=== PATIENT | female | born 1995 | race African-American/Black ===

== ENCOUNTER 2018-03-11 00:36 | Emergency (ER) | payer OTHER ==
[2018-03-11 02:00] LABS: HEMOGLOBIN 11.9 g/dL (12.0-15.5); MEAN CORPUSCULAR HEMOGLOBIN 29.8 pg (27.0-33.4); MEAN CORPUSCULAR HGB CONC 34.9 g/dL (32.0-36.0); MEAN CORPUSCULAR VOLUME 86 fl (80-97); PLATELET COUNT 301 10^3/uL (150-450); RED BLOOD COUNT 3.97 10^6/uL (3.72-5.28); RED CELL DISTRIBUTION WIDTH 13.6 % (11.5-14.0); WHITE BLOOD COUNT 7.2 10^3/uL (4.0-10.5)
[2018-03-11 02:14] LABS: ANION GAP 8 (5-19); BLOOD UREA NITROGEN 12 mg/dL (7-20); CALCIUM 9.6 mg/dL (8.4-10.2); CARBON DIOXIDE 25 mmol/L (22-30); CHLORIDE 107 mmol/L (98-107); GLUCOSE 105 mg/dL (75-110); POTASSIUM 4.1 mmol/L (3.6-5.0); SODIUM 140.4 mmol/L (137-145)
--- NOTE | 2018-03-11 02:54 | RADIOLOGY REPORT (SQ) ---
EXAM DESCRIPTION: US TRANSVAGINAL COMPLETED DATE/TME: 03/11/2018 01:38 CLINICAL HISTORY: 22 years Female, preg bleeding positive test. Comparison: None. Technique: Transvaginal. LIMITATIONS: None. FINDINGS: No evidence of intrauterine gestation. 6.5-cm uterus, 0.3-cm endometrial stripe thickness, 2.5-cm cervical length, 2.4-cm right ovary, and 3.0-cm left ovary appear otherwise unremarkable in size, shape, echotexture, and vascularity. Small free pelvic fluid. IMPRESSION: No evidence of intrauterine gestation. Small free pelvic fluid. Endometrial hypoplasia. Differential diagnosis includes occult ectopic gestation. Consider serial laboratory/sonographic evaluation in 48 to 72 hours.
--- NOTE | 2018-03-11 03:36 | ER Document Report ---
ED General - General Chief Complaint: Vag Bleeding, +preg <12wks Stated Complaint: VAGINAL BLEEDING Time Seen by Provider: 03/11/18 01:28 Notes: Patient is a 22-year-old female at roughly 6 weeks by LMP who presents of 1 week of intermittent lower abdominal cramping and 2-3 days of vaginal bleeding. Patient states that she had unprotected sexual intercourse mid January, has not had any sexual encounter since that time. States that she took Plan B the day after and then again 2 weeks later. She notes that she has had a positive test and had not started to get her. When she was supposed to. Became concerned tonight when she began bleeding more heavily and was continuing to have a mild, aching, cramping lower abdominal discomfort. Pain came and went. Nothing seemed to improve or worsen her symptoms. She has not had an ultrasound previously during this . Denies any previous history of similar symptoms. TRAVEL OUTSIDE OF THE [place] IN LAST 30 DAYS: No Past Medical History - General Information source: Patient - Social History Smoking Status: Never Smoker Chew tobacco use (# tins/day): No Frequency of alcohol use: None Drug Abuse: None Lives with: Family Family History: Reviewed & Not Pertinent Patient has suicidal ideation: No Patient has homicidal ideation: No Neurological Medical History: Reports: Hx Migraine Renal/ Medical History: Denies: Hx Peritoneal Dialysis GI Medical History: Reports: Hx Gastroesophageal Reflux Disease Psychiatric Medical History: Reports: Hx Depression - and anxiety Review of Systems - Review of Systems Notes: Constitutional: Negative for fever. HENT: Negative for sore throat. Eyes: Negative for visual changes. Cardiovascular: Negative for chest pain. Respiratory: Negative for shortness of breath. Gastrointestinal: Positive for lower abdominal pain Genitourinary: Positive for vaginal bleeding Musculoskeletal: Negative for back pain. Skin: Negative for rash. Neurological: Negative for headaches, weakness or numbness. 10 point ROS negative except as marked above and in HPI. Physical Exam - Vital signs Vitals: Temp Pulse Resp BP Pulse Ox 97.7 F 63 16 112/60 100 03/11/18 01:11 03/11/18 01:11 03/11/18 01:11 03/11/18 01:11 03/11/18 01:11 Interpretation: Normal Notes: PHYSICAL EXAMINATION: GENERAL: Well-appearing, well-nourished and in no acute distress. HEAD: Atraumatic, normocephalic. EYES: Pupils equal round and reactive to light, extraocular movements intact, sclera anicteric, conjunctiva are normal. ENT: nares patent, oropharynx clear without exudates. Moist mucous membranes. NECK: Normal range of motion, supple without lymphadenopathy LUNGS: Breath sounds clear to auscultation bilaterally and equal. No wheezes ra les or rhonchi. HEART: Regular rate and rhythm without murmurs ABDOMEN: Soft, nontender, normoactive bowel sounds. No guarding, no rebound. No masses appreciated. EXTREMITIES: Normal range of motion, no pitting or edema. No cyanosis. NEUROLOGICAL: No focal neurological deficits. Moves all extremities spontaneously and on command. PSYCH: Normal mood, normal affect. SKIN: Warm, Dry, normal turgor, no rashes or lesions noted. Course - Re-evaluation Re-evalutation: 03/11/18 03:34 Patient presents with a mild amount of vaginal bleeding in the setting of an early first trimester . Transvaginal ultrasound is unable to visualize an intrauterine at this time. Quantitative beta hCG below the zone of demargination. No active bleeding at time of presentation. She is Rh positive. Patient's abdominal exam is otherwise benign without any focal tenderness. I do not suspect an acute appendicitis, pyelonephritis, cystitis, or bowel obstruction. Patient is visiting from out of town and I have advised follow-up when she returns on Monday to [place] for quantitative beta hCG to assess whether or not this is a probable chemical versus less likely a normal or a possible ectopic . At this time will discharge with return precautions and follow-up recommendations. Verbal discharge instructions given a the bedside and opportunity for questions given. Medication warnings r eviewed. Patient is in agreement with this plan and has verbalized understanding of return precautions and the need for primary care follow-up in the next 24-72 hours. - Vital Signs Vital signs: Temp Pulse Resp BP Pulse Ox 98.1 F 82 16 113/72 97 03/11/18 03:44 03/11/18 03:44 03/11/18 03:44 03/11/18 03:44 03/11/18 03:44 - Laboratory Result Diagrams: 03/11/18 01:45 03/11/18 01:45 Laboratory results interpreted by me: 03/11/18 03/11/18 01:45 01:45 Hgb 11.9 L Hct 34.0 L Beta HCG, Quant 72.61 H - Diagnostic Test Radiology reviewed: Reports reviewed Discharge - Discharge Clinical Impression: of unknown anatomic location Hemorrhage Qualifiers: Trimester: first trimester Qualified Code(s): O20.9 - Hemorrhage in early , unspecified Condition: Good Disposition: HOME, SELF-CARE Additional Instructions: You need to follow-up with your OB when you return to [place] on Monday for a recheck of your hormone level. The ultrasound is unable to see anything at this time because you are too early in your . As we discussed, there is a very high chance that this is a "chemical ". However, we cannot definitively exclude an ectopic at this time. Please return if you develop severe abdominal pain, bleeding that goes through more than 2 pads for more than 2 hours, pass out, or have any other symptoms that are concerning to you. Please follow-up closely with your OBGYN regarding todays visit.
[2018-03-11 03:46] VITALS: BP 113/72
== END 2018-03-11 03:50 | disposition home or self-care (01) ==
LOC: ER 00:36
DX: O20.9 Hemorrhage in early pregnancy, unspecified (principal); Z3A.01 Less than 8 weeks gestation of pregnancy
CPT/HCPCS: 36415; 76817; 80048; 84702; 85027; 86900; 86901; 99284

== ENCOUNTER 2020-01-05 02:33 | Inpatient (IN) | payer OTHER, MEDICAID ==
[2020-01-05] MEDS ORDERED: MISOPROSTOL 0.2 MG TABLET ONE (03:03)
[2020-01-05] MEDS ORDERED: OXYTOCIN/0.9 % SODIUM CHLORIDE 30 UNIT/500 ML RTUINJ ONE (03:03)
[2020-01-05] MEDS ORDERED: LIDOCAINE 1% INJ-PF (10 MG/ML) 30 ML SDV ONE (03:03)
[2020-01-05] MEDS ORDERED: OXYTOCIN 10 UNIT/ML VIAL ONE (03:03)
[2020-01-05] MEDS ORDERED: RINGERS SOLUTION,LACTATED 1,000 ML IV PRN (03:13)
--- NOTE | 2020-01-05 03:59 | Admission Physical ---
Datetime Report Generated by CPN: 01/05/2020 03:59 CURRENT ADMISSION Chief Complaint: Uterine Contractions Indication for Induction: Not Applicable Admit Impression : Active Labor Admit Plan: Admit to Unit ALLERGIES Medication Allergies: Yes Latex: No Latex Allergies OBSTETRICAL HISTORY EDC: 01/02/2020 00:00 : 2 Para: 0 Term: 0 : 0 SAB: 0 IAB: 0 Ectopic: 0 Livin Cesareans: 0 VBACs: 0 Multiple Births: 0 Gestational Diabetes: No Rh Sensitization: No Incompetent Cervix: No ESSENCE: No Infertility: No ART Treatment: No Uterine Anomaly: No IUGR: No Hx Previous C/S: No Macrosomia: No Hx Loss/Stillborn: No PIH: No Hx : No Placenta Previa/Abruption: No Depression/PP Depression: No PTL/PROM: No Post Hemorrhage: No Current Procedures: Ultrasound Obstetrical History Comments: G1: 03/2018 SAB _7 weeks G2: current SEE RECORDS Alcohol: No Marijuana : No Cocaine: No Other Illicit Drugs: No Cigarettes: Never Smoker. 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 Heart Disease: No Hosp/Surgery: No Autoimmune Disorder: No Anesthetic Complications: No Kidney Disease: Yes Abnormal Pap Smear: No Neuro/Epilepsy: No Psychiatric Disorders: No Other Medical Diseases: No Hepatitis/Liver Disease: No Significant Family History: No Varicosities/Phlebitis: No Trauma/Violence : No Thyroid Dysfunction: No Medical History Comments: hx of bladder infections, migraines, anemia, HSV INFECTIOUS HISTORY Gonorrhea: No Genital Herpes: Yes Chlamydia: Yes Tuberculosis: No Syphilis: No Hepatitis: No HIV/AIDS Exposure: No Rash or Viral Illness: No HPV: No Infectious History Comments: chlamydia in 2013 PHYSICAL EXAM General: Normal HEENT: Normal Neurologic: Normal Thyroid: Normal Heart: Normal Lungs: Normal Breast: Deferred Back: Normal Abdomen: Normal Genitourinary Exam: Normal Extremities: Normal DTRs: Normal Pelvic Type: Adequate Vital Signs: Reviewed VAGINAL EXAM Dilatation: 8 Effacement: 100 Station: 0 MEMBRANES Pooling: Positive FETUS A EGA: 40.3 Monitoring: External US FHR- Baseline: 120 Variability: Moderate 6-25bpm Decelerations: None Presentation: Vertex Admit Comment: anticipate delivery PLANS FOR LABOR AND DELIVERY Labor and Delivery: Plan Pain Management: Natural; Epidural Feeding Preference: Breast Benefit of Breast Feed Discussed: Yes Circumcision: N/A INFORMED CONSENT Signature: with User ID: [email or web address]
[2020-01-05] MEDS ORDERED: BENZOCAINE/MENTHOL AEROSOL SPRAY 56 ML ONE (04:03)
[2020-01-05] MEDS ORDERED: IBUPROFEN 800 MG TABLET ONE (04:03)
[2020-01-05] MEDS ORDERED: OXYTOCIN/0.9 % SODIUM CHLORIDE 30 UNIT/500 ML RTUINJ IV PRN (04:06)
[2020-01-05] MEDS ORDERED: PROMETHAZINE HCL 25 MG TABLET PO PRN (04:06)
[2020-01-05] MEDS ORDERED: ACETAMINOPHEN 650 MG SUPP.RECT PR PRN (04:06)
[2020-01-05] MEDS ORDERED: ZOLPIDEM TARTRATE 5 MG TABLET PO PRN (04:06)
[2020-01-05] MEDS ORDERED: PROMETHAZINE HCL INJ 25 MG/1 ML VIAL IV PRN (04:06)
[2020-01-05] MEDS ORDERED: MEASLES,MUMPS&RUBELLA VACC/PF 0.5 ML VIAL SUBCUT PRN (04:06)
[2020-01-05] MEDS ORDERED: NA PHOS,M-B/NA PHOS,DI-BA (ADULT) 133 ML ENEMA PR PRN (04:06)
[2020-01-05] MEDS ORDERED: DIBUCAINE 1% OINTMENT 28 GM TP PRN (04:06)
[2020-01-05] MEDS ORDERED: DIPHENHYDRAMINE HCL 25 MG CAPSULE PO PRN (04:06)
[2020-01-05] MEDS ORDERED: ACETAMINOPHEN WITH CODEINE #3 TABLET PO PRN ×2 (04:06)
[2020-01-05] MEDS ORDERED: DIPH/PERTUSS(ACELL)/TETANUS VAC/PF 0.5 ML SYR (>=10YO) IM PRN (04:06)
[2020-01-05] MEDS ORDERED: BENZOCAINE/MENTHOL AEROSOL SPRAY 56 ML TOP PRN (04:06)
[2020-01-05] MEDS ORDERED: GLYCERIN/WITCH HAZEL LEAF 1 EACH MED..WIPE TP PRN (04:06)
[2020-01-05] MEDS ORDERED: MAGNESIUM HYDROXIDE SUSP 30 ML UDCUP PO PRN (04:06)
[2020-01-05] MEDS ORDERED: PROMETHAZINE HCL 25 MG SUPP.RECT PR PRN (04:06)
[2020-01-05] MEDS ORDERED: PSEUDOEPHEDRINE HCL 30 MG TABLET PO PRN (04:06)
[2020-01-05 04:11] LABS: APPEARANCE,URINE TURBID; BILIRUBIN,URINE NEGATIVE (NEGATIVE); GLUCOSE, URINE NEGATIVE (NEGATIVE); KETONES,URINE NEGATIVE (NEGATIVE); LEUKOCYTE ESTERASE,URINE TRACE (NEGATIVE); NITRITE,URINE NEGATIVE (NEGATIVE); PROTEIN,URINE 100 mg/dL (NEGATIVE); URINE SPECIFIC GRAVITY 1.005; UROBILINOGEN,URINE NEGATIVE mg/dL (<2.0)
[2020-01-05 04:15] LABS: COLOR,URINE STRAW
[2020-01-05] MEDS ORDERED: ACETAMINOPHEN WITH CODEINE #3 TABLET ONE ×2 (05:00→05:01)
[2020-01-05 05:02] LABS: URINE AMPHETAMINES SCREEN NEGATIVE; URINE BARBITURATES SCREEN NEGATIVE; URINE BENZODIAZEPINES SCREEN NEGATIVE; URINE COCAINE SCREEN NEGATIVE; URINE MARIJUANA (THC) SCREEN NEGATIVE; URINE METHADONE SCREEN NEGATIVE; URINE PHENCYCLIDINE SCREEN NEGATIVE
--- NOTE | 2020-01-05 05:37 | Delivery Summary ---
Del Sum A-C Datetime Report Generated by CPN: 01/05/2020 05:37 DELIVERY PERSONNEL DELIVERY PERSONNEL: [id number] Delivery Doctor:: Suri Styles MD Labor and Delivery Nurse:: Krystin Rose RNmedia librarian Nurse:: Ca Claros RN Suture Gauger/CARTOGRAPHIC DRAFTER: Brenna Hsu [facility] Additional Personnel: : Ema Malik RN MATERNAL INFORMATION Delivery Anesthesia: None Medications After Delivery: Pitocin 30 Units in 500ml NS/D5W Estimated Blood Loss (ml): 250 Maternal Complications: None LABOR SUMMARY EDC: 01/02/2020 00:00 No. Babies in Womb: 1 Attempted: No Labor Anesthesia: None LABOR INFORMATION Reason for Induction: Not Applicable Onset of Labor: 01/04/2020 23:30 Complete Dilatation: 01/05/2020 03:13 Oxytocin: N/A Group B Beta Strep: negative Antibiotics # of Doses: 0 Name of Antibiotic Given: n/a Steroids Given: None Reason Steroids Not Administered: Not Applicable MEMBRANES Membranes Rupture Method: Spontaneous Rupture of Membranes: 01/05/2020 01:30 Length of Rupture (hr): 2.23 Amniotic Fluid Color: Clear Amniotic Fluid Amount: Small Amniotic Fluid Odor: Normal STAGES OF LABOR Stage 1 hr: 3 Stage 1 min: 43 Stage 2 hr: 0 Stage 2 min: 31 Stage 3 hr: 0 Stage 3 min: 8 Total Time in Labor hr: 4 Total Time in Labor min: 22 VAGINAL DELIVERY Episiotomy: None Laceration #1: Perineal Laceration Extension #1: First Degree Laceration #2: None Laceration Extension #2: N/A Laceration #3: None Laceration Extension #3: N/A Laceration Repair: Yes Laceration Repair Note: Repair of right sided perineal laceration with 3-0 chromic suture. Sponge Count Correct: Yes; Vaginal Sweep Performed Sharps Count Correct: No CSECTION DELIVERY Primary Indication: N/A Secondary Indication: N/A CSection Incidence: N/A Labor: N/A Elective: N/A BABY A INFORMATION Infant Delivery Date/Time: 01/05/2020 03:44 Method of Delivery: Vaginal Nurse Controlled Delivery: No Born in Route : No : N/A Forceps: N/A Vacuum Extraction: N/A Shoulder Dystocia : No PRESENTATION/POSITION BABY A Presentation: Cephalic Cephalic Presentation: Vertex Vertex Position: Left Occipital Anterior Breech Presentation: N/A PLACENTA INFORMATION BABY A Placenta Delivery Time : 01/05/2020 03:52 Placenta Method of Delivery: Spontaneous Placenta Status: Delivered SCORES BABY A Heart Rate 1 min: >100 bpm Resp Effort 1 min: Good Cry Reflex Irritability 1 min: Cough or Sneeze or Pulls Away Muscle Tone 1 min: Active Motion Color 1 min: Blue/Pale Resuscitation Effort 1 min: Tactile Stimulation SCORE 1 MIN: 8 Heart Rate 5 min: >100 bpm Resp Effort 5 min: Good Cry Reflex Irritability 5 min: Cough or Sneeze or Pulls Away Muscle Tone 5 min: Active Motion Color 5 min: Body [place], Extremities Blue Resuscitation Effort 5 min: Tactile Stimulation SCORE 5 MIN: 9 INFANT INFORMATION BABY A Gestational Age at Delivery: 40.3 Gestational Status: Full Term- 39- 40.6 Weeks Infant Outcome : Liveborn Condition : Stable Sex: Female IDENTIFICATION BABY A Infant Verification Date/Time: 01/05/2020 03:52 ID Band Number: [id number] Mother's Name Verified: Yes Infant RN Verifying : Gwen, RN Additional Verifying Personnel: ATomás Claros, RN WEIGHT/LENGTH BABY A Birthweight (gm): 3090 Infant Weight (lb): 6 Weight (oz): 13 Infant Length (in): 19.50 Infant Length (cm): 49.53 CORD INFORMATION BABY A No. Cord Vessels: 3 Nuchal Cord : N/A Cord Blood Taken: Yes-For Storage (Mom's Blood type +) Infant Suction: Mouth; Nose ASSESSMENT BABY A Complications: Other Complications- Other: terminal mec Physical Findings at Delivery: Within Normal Limits Physical Findings- Other: Right compound hand; See full nursery medical imaging technician. 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
--- NOTE | 2020-01-05 05:37 | Birth Certificate Data ---
Cert Data Datetime Report Generated by CPN: 01/05/2020 05:37 CERTIFICATE DATA Delivery Provider: Suri Styles MD (01/05/2020 02:46:Krystin Rose RN) 47a. Care: Yes (01/05/2020 02:46:Krystin Rose RN) 47b. Date of First Visit: 05/23/2019 00:00 (01/05/2020 02:46:Suzan Fontana RN) 47c. Date of Last Visit: 12/30/2019 00:00 (01/05/2020 02:46:Suzan Fontana RN) 47d. Number of Visits: 10 (01/05/2020 02:46:Suzan Fontana RN) 48a. Number of Prev Live Births: 0 (01/05/2020 02:46:Krystin Rose RN) 48b. Now Livin (01/05/2020 02:46:Krystin Rose RN) 48c. Live Births Now : 0 (01/05/2020 02:46:QS system process) 48e. Losses: 1 (01/05/2020 02:46:Krystin Ring, RN) 48f. Date of Last Preg Loss: 03/11/2018 00:00 (01/05/2020 02:46:Suzan Fontana RN) RISK FACTORS IN THIS 49a. Diabetes: No (01/05/2020 02:46:Krystin Rose, RN) 49b. Hypertension: No (01/05/2020 02:46:Krystin Ring, RN) 49c. Previous Births: 0 (01/05/2020 02:46:Krystin Rose RN) 49d. Stillborns: No (01/05/2020 02:46:Krystin Ring, RN) 49d. IUGR: No (01/05/2020 02:46:Krystin Ring, RN) 49e. Infertility Treatment: No (01/05/2020 02:46:Krystin Ring, RN) 49f. Previous Cesareans: 0 (01/05/2020 02:46:Krystin Ring, RN) Infections Present/Treated 53a. Gonorrhea: No (01/05/2020 02:46:Krystin Rose RN) Results this Hospital Visit : Negative (01/05/2020 02:46:Suzan Fontana RN) 53b. Syphilis: No (01/05/2020 02:46:Krystin Rose RN) 53c. Chlamydia: Yes (01/05/2020 02:46:Krystin Rose RN) Results this Hospital Visit: Negative (01/05/2020 02:46:Suzan Fontana RN) 53d. Hepatitis B: No (01/05/2020 02:46:Krystin Rose RN) Results this Hospital Visit: Negative (01/05/2020 02:46:Suzan Fontana RN) 53e. Hepatitis C: Negative (01/05/2020 02:46:Suzan Fontana RN) 53h. Mother Tested for HBsAG: Yes (01/05/2020 02:46:Suzan Fontana RN) 53i. Date Tested: 05/23/2019 00:00 (01/05/2020 02:46:Suzan Fontana RN) 53j. Test Result: Negative (01/05/2020 02:46:Suzan Fontana RN) Obstetric Procedures 54a, b, c. Obstetric Procedures: Ultrasound (01/05/2020 02:46:Krystin Rose RN) Cigarette Smoking Cigarette Smoking: Never Smoker. [id number] (01/05/2020 02:46:Krystin Rose RN) Onset of Labor 56a. PROM >12 Hrs: 2.23 (01/05/2020 02:46:QS system process) 56b. Precipitous Labor <3 Hrs: 4 (01/05/2020 02:46:QS system process) 56c. Prolonged Labor > 20 Hrs: 4 (01/05/2020 02:46:QS system process) 57a. Induction of Labor: N/A (01/05/2020 02:46:Krystin Rose RN) 57c. Non-Vertex Presentation A: Vertex (01/05/2020 02:46:Krystin Rose RN) 57d. Steroids - Lung Mat: None (01/05/2020 02:46:Krystin Rose RN) 57d. Steroids - Lung Mat: Not Applicable (01/05/2020 02:46:Krystin Rose RN) 57g. Moderate/Heavy Meconium: Clear (01/05/2020 02:46:Krystin Rose RN) 57h. Intolerance of Labor: N/A (01/05/2020 02:46:Krystin Rose RN) : N/A (01/05/2020 02:46:Krystin Rose RN) 57i. Epidural/Spinal Anesthesia: None (01/05/2020 02:46:Krystin Rose, RN) Method of Delivery 58a. Forceps - Unsuccessful A: N/A (01/05/2020 02:46:Krystin Rose RN) 58b. Vacuum - Unsuccessful A: N/A (01/05/2020 02:46:Krystin Rose, RN) 58c. Presentation at 58c. Presentation at - A : Vertex (01/05/2020 02:46:Krystin Rose RN) 58c. Presentation at - A : N/A (01/05/2020 02:46:Krystin Rose RN) 58c. Presentation at - A : Cephalic (01/05/2020 03:13:Krystin Rose RN) Final Route and Method of Del 58d. Baby A Route/Delivery: Vaginal (01/05/2020 02:46:Krystin Ring, RN) 58e. Trial of Labor Attempted: No (01/05/2020 02:46:Krystin Ring, RN) 58e. Trial of Labor Attempted A: N/A (01/05/2020 02:46:Krystin Ring, RN) 58e. Trial of Labor Attempted B: N/A (01/05/2020 02:46:Krystin Ring, RN) Maternal Morbidity 59b. 3rd or 4th Degree Lacs: Perineal (01/05/2020 02:46:Suri Styles MD ([id number])) Birthweight Baby A: 3090 (01/05/2020 02:46:Cassie LYUBOV Taylor) 60a. Pounds : 6 (01/05/2020 02:46:QS system process) 60b. Ounces: 13 (01/05/2020 02:46:QS system process) 61. GA at Delivery Baby A: 40.3 (01/05/2020 02:46:Krystin Rose RN) : Full Term- 39- 40.6 Weeks (01/05/2020 02:46:QS system process) 62a. 5 Minute Baby A: 9 (01/05/2020 02:46:QS system process)
--- NOTE | 2020-01-05 05:37 | Warning Signs in Babies ---
VOD Warning Signs Datetime Report Generated by [facility]: 01/05/2020 05:37 VOD#608 -Warning Signs in Babies: Needs to be viewed. (01/05/2020 02:46:Krystin Rose RN)
[2020-01-05 06:40] LABS: ABSOLUTE LYMPHOCYTES (AUTO) 1.3 10^3/uL (0.5-4.7); ABSOLUTE NEUT (AUTO) 16.7 10^3/uL (1.7-8.2); BASOPHILS % (AUTO) 0.1 % (0-2); EOSINOPHILS % (AUTO) 0.1 % (0-6); HEMATOCRIT 32.8 % (36.0-47.0); HEMOGLOBIN 11.3 g/dL (12.0-15.5); LYMPHOCYTES % (AUTO) 7.1 % (13-45); MEAN CORPUSCULAR HEMOGLOBIN 29.9 pg (27.0-33.4); MEAN CORPUSCULAR HGB CONC 34.4 g/dL (32.0-36.0); MEAN CORPUSCULAR VOLUME 87 fl (80-97); PLATELET COUNT 212 10^3/uL (150-450); RED BLOOD COUNT 3.78 10^6/uL (3.72-5.28); RED CELL DISTRIBUTION WIDTH 13.4 % (11.5-14.0); SEGMENTED NEUTROPHILS % (AUTO) 87.7 % (42-78); TOTAL CELLS COUNTED % (AUTO) 100 %
[2020-01-05] MEDS: IBUPROFEN 800 MG TABLET PO SCH ×3 (07:51→22:29)
[2020-01-05] MEDS: PRENATAL VITAMIN W DHA CAPSULE PO SCH (09:23)
[2020-01-05] MEDS: DOCUSATE SODIUM 100 MG CAPSULE PO SCH ×2 (09:23→17:23)
[2020-01-05] MEDS: FERROUS SULFATE 325 MG TABLET PO SCH ×2 (09:24→17:22)
[2020-01-05] MEDS: FAMOTIDINE 20 MG TABLET PO SCH ×2 (09:24→22:30)
[2020-01-05] MEDS: SENNOSIDES/DOCUSATE 8.6-50 MG 1 EACH TABLET PO SCH (09:24)
--- NOTE | 2020-01-05 12:29 | PDOC PROGRESS REPORT ---
Subjective-OB Progress Note for:: 01/05/20 Subjective: Delivered early this am. Reports moderate bleeding w/o clots, is able to void and eat reg diet. Physical Exam (OB) Vital Signs: Temp Pulse Resp BP Pulse Ox 97.7 F 81 18 126/75 H 98 01/05/20 08:00 01/05/20 07:29 01/05/20 07:29 01/05/20 07:29 01/05/20 07:29 Intake & Output 01/04/20 01/05/20 01/06/20 06:59 06:59 06:59 Weight 58.4 kg - PIH/Pre-Eclampsia DTR's: 2 + Clonus: Negative Headache: Absent Epigastric Pain: No Visual Changes: No - Maternal Morbidity 59. Maternal Morbidity (serious complications experinced by the mother associated with labor and delivery: None of the above - Lochia Lochia Amount: Small 10-25 ml Lochia Color: Rubra/Red - Abdomen Description: Soft, Flat Hernia Present: No Fundal Description: Firm, Midline Describe if Not Midline: slightly left deviated, pt. already up to void Fundal Height: u/3 - u/4 Objective-Diagnostic Laboratory: 01/05/20 05:44 01/05/20 01/05/20 01/05/20 03:08 05:44 05:44 WBC 19.0 H RBC 3.78 Hgb 11.3 L Hct 32.8 L MCV 87 MCH 29.9 MCHC 34.4 RDW 13.4 Plt Count 212 Seg Neutrophils % 87.7 H Urine Color STRAW Urine Appearance TURBID Urine pH 8.0 Ur Specific Whitney 1.005 Urine Protein 100 H Urine Glucose (UA) NEGATIVE Urine Ketones NEGATIVE Urine Blood LARGE H Urine Nitrite NEGATIVE Ur Leukocyte Esterase TRACE H Blood Type B POSITIVE Antibody Screen NEGATIVE Assessment and Plan(PN) - Assessment and Plan (1) (spontaneous vaginal delivery) Is this a current diagnosis for this admission?: Yes (2) First degree perineal laceration during delivery Is this a current diagnosis for this admission?: Yes - Time Spent with Patient Time with patient: Less than 15 minutes Medications reviewed and adjusted accordingly: Yes - Disposition Anticipated Discharge Disposition: Home, Self Care Anticipated Discharge Timeframe: within 24 hours
[2020-01-06] MEDS: IBUPROFEN 800 MG TABLET PO SCH ×3 (05:41→22:13)
[2020-01-06 07:26] LABS: HEMATOCRIT 29.2 % (36.0-47.0); HEMOGLOBIN 10.2 g/dL (12.0-15.5); MEAN CORPUSCULAR HEMOGLOBIN 30.1 pg (27.0-33.4); MEAN CORPUSCULAR VOLUME 86 fl (80-97); PLATELET COUNT 178 10^3/uL (150-450); RED BLOOD COUNT 3.39 10^6/uL (3.72-5.28); RED CELL DISTRIBUTION WIDTH 13.5 % (11.5-14.0)
--- NOTE | 2020-01-06 10:06 | PDOC PROGRESS REPORT ---
Subjective-OB Progress Note for:: 01/06/20 - PP Day #1, doing well, B+, Rubella Non-immune. . UOB, voiding Physical Exam (OB) Vital Signs: Temp Pulse Resp BP Pulse Ox 98.2 F 79 16 116/57 L 99 01/06/20 08:00 01/06/20 08:00 01/06/20 08:00 01/06/20 08:00 01/06/20 08:00 Intake & Output 01/05/20 01/06/20 01/07/20 06:59 06:59 06:59 Intake Total 2400 Balance 2400 Weight 58.4 kg - General General Appearance: Appears well, Alert In distress: None - PIH/Pre-Eclampsia DTR's: 2 + Clonus: Negative Headache: Absent Epigastric Pain: No Visual Changes: No - Maternal Morbidity 59. Maternal Morbidity (serious complications experinced by the mother associated with labor and delivery: None of the above - Lochia Lochia Amount: Small 10-25 ml Lochia Color: Rubra/Red - Abdomen Description: Soft Hernia Present: No Fundal Description: Firm, Midline Describe if Not Midline: slightly left deviated, pt. already up to void Fundal Height: u/u - u/2 - Respiratory Respiratory Status: No respiratory distress - Abdominal Inspection: Normal Distension: No distension - Genitourinary Genitourinary Note: voiding - Extremities Upper extremity: Normal inspection Lower extremities: Normal inspection - Neurological Cognition: Normal Orientation: AAOx4 - Psychological Associated symptoms: Normal affect, Normal mood - Skin Skin Temperature: Warm Skin Moisture: Dry Objective-Diagnostic Laboratory: 01/06/20 06:56 01/06/20 06:56 WBC 12.0 H RBC 3.39 L Hgb 10.2 L Hct 29.2 L MCV 86 MCH 30.1 MCHC 35.0 RDW 13.5 Plt Count 178 Assessment and Plan(PN) - Assessment and Plan (1) First degree perineal laceration during delivery Is this a current diagnosis for this admission?: Yes (2) (spontaneous vaginal delivery) Is this a current diagnosis for this admission?: Yes Plan:: routine PP orders - Time Spent with Patient Time with patient: Less than 15 minutes Medications reviewed and adjusted accordingly: Yes - Disposition Anticipated Discharge Disposition: Home, Self Care Anticipated Discharge Timeframe: within 24 hours
[2020-01-06] MEDS: FAMOTIDINE 20 MG TABLET PO SCH ×2 (10:29→22:14)
[2020-01-06] MEDS: FERROUS SULFATE 325 MG TABLET PO SCH ×2 (10:29→18:02)
[2020-01-06] MEDS: SENNOSIDES/DOCUSATE 8.6-50 MG 1 EACH TABLET PO SCH (10:29)
[2020-01-06] MEDS: PRENATAL VITAMIN W DHA CAPSULE PO SCH (10:29)
[2020-01-06] MEDS: DOCUSATE SODIUM 100 MG CAPSULE PO SCH ×2 (10:29→18:02)
[2020-01-07] MEDS: IBUPROFEN 800 MG TABLET PO SCH (05:39)
--- NOTE | 2020-01-07 08:39 | PDOC PROGRESS REPORT ---
Subjective-OB Progress Note for:: 01/07/20 Subjective: Doing well, no c/o, , family at bedside, ready to go home Physical Exam (OB) Vital Signs: Temp Pulse Resp BP Pulse Ox 97.8 F 63 18 128/75 H 98 01/06/20 22:00 01/06/20 20:23 01/06/20 20:23 01/06/20 20:23 01/06/20 20:23 Intake & Output 01/06/20 01/07/20 01/08/20 06:59 06:59 06:59 Intake Total 2400 2300 Balance 2400 2300 - PIH/Pre-Eclampsia DTR's: 2 + Clonus: Negative Headache: Absent Epigastric Pain: No Visual Changes: No - Maternal Morbidity 59. Maternal Morbidity (serious complications experinced by the mother associated with labor and delivery: None of the above - Lochia Lochia Amount: Scant < 10 ml Lochia Color: Rubra/Red - Abdomen Description: Soft, Round Hernia Present: No Fundal Description: Firm, Midline Describe if Not Midline: slightly left deviated, pt. already up to void Fundal Height: u/u - u/2 Objective-Diagnostic Laboratory: 01/06/20 06:56 Assessment and Plan(PN) - Assessment and Plan (1) First degree perineal laceration during delivery Is this a current diagnosis for this admission?: Yes (2) (spontaneous vaginal delivery) Is this a current diagnosis for this admission?: Yes - Time Spent with Patient Time with patient: Less than 15 minutes Medications reviewed and adjusted accordingly: Yes - Disposition Anticipated Discharge Disposition: Home, Self Care Anticipated Discharge Timeframe: within 24 hours
--- NOTE | 2020-01-07 08:43 | PDOC DISCHARGE SUMMARY ---
Impression - Admit/DC Date/PCP Admission Date/Primary Care Provider: 01/05/20 02:46 Discharge Date: 01/07/20 - Discharge Diagnosis (1) First degree perineal laceration during delivery Is this a current diagnosis for this admission?: Yes (2) (spontaneous vaginal delivery) Is this a current diagnosis for this admission?: Yes - Additional Information Resuscitation Status: Full Code Discharge Diet: As Tolerated, Regular Discharge Activity: Activity As Tolerated Referrals: MAGGIE BURNETT MD [ACTIVE STAFF] - [facility] Gestational Age: 40.3 Reason(s) for Admission: Onset of Labor Procedures: Ultrasound Intrapartum Procedure(s): Spontaneous Vaginal Delivery Complication(s): Laceration-Perineal Laceration-Degree: 1st Hospital Course Hospital Course: routine 59. Maternal Morbidity (serious complications experinced by the mother associated with labor and delivery: None of the above Results Laboratory Results: WBC 12.0 10^3/uL (4.0-10.5) H 01/06/20 06:56 RBC 3.39 10^6/uL (3.72-5.28) L 01/06/20 06:56 Hgb 10.2 g/dL (12.0-15.5) L 01/06/20 06:56 Hct 29.2 % (36.0-47.0) L 01/06/20 06:56 MCV 86 fl (80-97) 01/06/20 06:56 MCH 30.1 pg (27.0-33.4) 01/06/20 06:56 MCHC 35.0 g/dL (32.0-36.0) 01/06/20 06:56 RDW 13.5 % (11.5-14.0) 01/06/20 06:56 Plt Count 178 10^3/uL (150-450) 01/06/20 06:56 Lymph % (Auto) 7.1 % (13-45) L 01/05/20 05:44 [place] % (Auto) 5.0 % (3-13) 01/05/20 05:44 Eos % (Auto) 0.1 % (0-6) 01/05/20 05:44 Baso % (Auto) 0.1 % (0-2) 01/05/20 05:44 Absolute Neuts (auto) 16.7 10^3/uL (1.7-8.2) H 01/05/20 05:44 Absolute Lymphs (auto) 1.3 10^3/uL (0.5-4.7) 01/05/20 05:44 Absolute Monos (auto) 1.0 10^3/uL (0.1-1.4) 01/05/20 05:44 Absolute Eos (auto) 0.0 10^3/uL (0.0-0.6) 01/05/20 05:44 Absolute Basos (auto) 0.0 10^3/uL (0.0-0.2) 01/05/20 05:44 Seg Neutrophils % 87.7 % (42-78) H 01/05/20 05:44 Urine Color STRAW 01/05/20 03:08 Urine Appearance TURBID 01/05/20 03:08 Urine pH 8.0 (5.0-9.0) 01/05/20 03:08 Ur Specific [place] 1.005 01/05/20 03:08 Urine Protein 100 mg/dL (NEGATIVE) H 01/05/20 03:08 Urine Glucose (UA) NEGATIVE mg/dL (NEGATIVE) 01/05/20 03:08 Urine Ketones NEGATIVE mg/dL (NEGATIVE) 01/05/20 03:08 Urine Blood LARGE (NEGATIVE) H 01/05/20 03:08 Urine Nitrite NEGATIVE (NEGATIVE) 01/05/20 03:08 Urine Bilirubin NEGATIVE (NEGATIVE) 01/05/20 03:08 Urine Urobilinogen NEGATIVE mg/dL (<2.0) 01/05/20 03:08 Ur Leukocyte Esterase TRACE (NEGATIVE) H 01/05/20 03:08 Urine Ascorbic Acid NEGATIVE (NEGATIVE) 01/05/20 03:08 Urine Opiates Screen NEGATIVE 01/05/20 03:08 Urine Methadone Screen NEGATIVE 01/05/20 03:08 Ur Barbiturates Screen NEGATIVE 01/05/20 03:08 Ur Phencyclidine Scrn NEGATIVE 01/05/20 03:08 Ur Amphetamines Screen NEGATIVE 01/05/20 03:08 U Benzodiazepines Scrn NEGATIVE 01/05/20 03:08 Urine Cocaine Screen NEGATIVE 01/05/20 03:08 U Marijuana (THC) Screen NEGATIVE 01/05/20 03:08 RPR NONREACTIVE (NONREACTIVE) 01/05/20 05:44 Blood Type B POSITIVE 01/05/20 05:44 Antibody Screen NEGATIVE 01/05/20 05:44 Plan Health Concerns: routine Plan of Treatment: dc home, rev S&S to report, has help at home Goals: no complications Time Spent: Less than 30 Minutes
[2020-01-07] MEDS: FERROUS SULFATE 325 MG TABLET PO SCH (09:40)
[2020-01-07] MEDS: SENNOSIDES/DOCUSATE 8.6-50 MG 1 EACH TABLET PO SCH (09:40)
[2020-01-07] MEDS: PRENATAL VITAMIN W DHA CAPSULE PO SCH (09:40)
[2020-01-07] MEDS: FAMOTIDINE 20 MG TABLET PO SCH (09:40)
[2020-01-07] MEDS: DOCUSATE SODIUM 100 MG CAPSULE PO SCH (09:40)
[2020-01-07 10:49] VITALS: BP 116/57
== END 2020-01-07 12:59 | disposition home or self-care (01) | DRG 807 ==
LOC: LC 02:33 → LR 02:46 → 2S 06:30 → 2N 18:00
PROVIDERS: ADMIT Obstetrics & Gynecology; ATTEND Obstetrics & Gynecology
PROC: 10E0XZZ Delivery of Products of Conception, External Approach (ICD-10-PCS; principal; 2020-01-05)
PROC: 0HQ9XZZ Repair Perineum Skin, External Approach (ICD-10-PCS; 2020-01-05)
DX: O70.0 First degree perineal laceration during delivery (principal); Z37.0 Single live birth; Z28.21 Immunization not carried out because of patient refusal; Z3A.40 40 weeks gestation of pregnancy
CPT/HCPCS: 36415; 80307; 81005; 85025; 85027; 86592; 86850; 86900; 86901; 94760; J2590; J3490